=== PATIENT | male | born 1985 | race Caucasian/White ===

== ENCOUNTER 2018-05-27 21:58 | Emergency (ER) | payer OTHER ==
[~2018-05-27] VITALS: Ht 180.3 cm; Wt 75.0 kg
[2018-05-27 22:03] VITALS: Ht 180.3 cm; Wt 75.0 kg
[2018-05-27] MEDS ORDERED: FIORICET/ESGIC1 TAB PO (23:52)
[2018-05-28 00:31] VITALS: BP 147/80
== END 2018-05-28 00:32 | disposition home or self-care (01) ==
LOC: D.ER 21:58
DX: R51 Headache (principal)

== ENCOUNTER → 2018-12-14 08:43 | Outpatient (CLI) | payer OTHER ==
[2018-05-27 22:03] VITALS: BMI 23.0
--- NOTE | ~2018-12-14 | EC ---
PATIENT:DARREN PAPPAS DATE OF SERVICE: 12/14/18 SEX: M MEDICAL RECORD: [id number] DATE OF : [birth year] LOCATION:[facility] AGE OF PATIENT: 33 ADMISSION DATE: 12/14/18 REFERRING PHYSICIAN: INTERPRETING PHYSICIAN: NICOLE DE LA FUENTE MD ECHOCARDIOGRAM REPORT ECHO CHARGES 4 ECHO COMPLETE Date: 12/14/18 CLINICAL DIAGNOSIS: NEAR SYNCOPE/PALPITATIONS/HTN ECHOCARDIOGRAPHIC MEASUREMENTS (adult normal given) AC root (d.<3.7cm) 2.9 cm LV Septum d (<1.2 cm> 1.0 cm Valve Excursion 2.2 cm LV Septum (systole) 2.0 cm Left Atria (s.<4.0cm> 3.8 cm LVPW d(<1.2cm) 1.1 cm RV (d.<2.3cm) 2.5 cm LVPW (sytole) 1.9 cm LV diastole(<5.6CM) 5.0 cm MV E-F(>70mm/sec) cm LV systole 2.1 cm LVOT Diameter 1.9 cm MV exc.(>10mm) cm Est.ejection fraction (50-75%) % DOPPLER: LVIT cm/sec A 50.0 cm/sec E 82.0 cm/sec LA cm/sec RVSP 33.2 mmHg LVOT 158 cm/sec AOP1/2T m/s Asc. 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 De La Fuente TAPE# PACS Pericardial Effusion N DATE OF SERVICE: 12/14/2018 FINDINGS: 1. Left ventricular chamber size is within normal limits. Left ventricular systolic function is normal. Overall ejection fraction estimated at 60%. 2. Left atrium, right atrium, and right ventricular chamber sizes are within normal limits. 3. Valvular structures have normal structure and motion. 4. Doppler interrogation only reveals trace tricuspid regurgitation, no other valvular insufficiency or stenosis. Pulmonary systolic pressure estimated at 33 ECHOCARDIOGRAM REPORT [id number] DARREN PAPPAS mmHg. 5. No evidence of pericardial effusion or left ventricular thrombus. 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
[~2018-12-14 08:43] MED LIST: FIORICET/ESGIC1 TAB PO
== END | disposition home or self-care (01) ==
LOC: D.HCCARDIO 08:43
PROVIDERS: ATTEND Internal Medicine Interventional Cardiology
DX: I10 Essential (primary) hypertension (principal); R00.0 Tachycardia, unspecified; R55 Syncope and collapse